=== PATIENT | female | born 1950 | race Caucasian/White ===

== ENCOUNTER 2019-11-29 09:49 | Inpatient (IN) ==
[2019-11-29] MEDS ORDERED: Aspirin 81 MG TAB.CHEW PO ONE (10:00)
[2019-11-29] MEDS: Nitroglycerin 0.4 MG TAB.SUBL SL PRN (10:12)
[2019-11-29 10:31] LABS: Basophils # 0.1 K/mcL (0.0-0.2); Basophils % 0.5 %; Eosinophils # 0.1 K/mcL (0.0-0.6); Eosinophils % 0.8 %; Hematocrit 41.4 % (35.3-44.9); Hemoglobin 13.6 g/dL (11.5-15.4); Immature Granulocytes % 0.3 % (0-4); Lymphocytes # 1.5 K/mcL (0.6-4.6); Lymphocytes % 13.5 %; Mean Corpuscular HGB Conc 32.9 g/dL (31.6-35.5); Mean Corpuscular Hemoglobin 31.8 pg (28.0-33.3); Mean Corpuscular Volume 96.7 fL (83.0-100.0); Mean Platelet Volume 11.5 fL (9.4-12.4); Monocytes # 0.7 K/mcL (0.0-1.3); Monocytes % 6.5 %; Neutrophils # 8.7 K/mcL (1.6-8.9); Platelet Count 150 K/mcL (140-400); Red Blood Count 4.28 M/mcL (3.82-4.97); Red Cell Distribution Width 12.9 % (11.5-14.5); Segmented Neutrophils % 78.4 %; White Blood Count 11.1 K/mcL (4.3-11.1)
[2019-11-29 10:41] LABS: INR 1.1; Prothrombin Time 12.1 Seconds (9.4-12.1)
[2019-11-29 10:44] LABS: Activated Partial Thrombo Time 36.6 Seconds (26.0-36.0)
[2019-11-29 10:55] LABS: BUN/Creatinine Ratio 32 (6-26); Blood Urea Nitrogen 24 mg/dL (8-23); Calcium 10.1 mg/dL (8.6-10.3); Carbon Dioxide 25 mEq/L (23-29); Chloride 104 mEq/L (98-107); Glucose 122 mg/dL (70-105); Osmolality,Calculated 289 (280-300); Potassium 4.3 mEq/L (3.5-5.1); Sodium 137 mEq/L (136-145); eGFR For African Americans > 60 (> 60); eGFR For Non-African Americans > 60 (> 60)
[2019-11-29 11:17] LABS: Troponin I 1.21 ng/mL (< 0.04)
[2019-11-29] MEDS ORDERED: *HR* Heparin 5,000 UNIT/ML VIAL IVP PRN ×2 (11:17)
[2019-11-29] MEDS ORDERED: *HR* Heparin 5,000 UNIT/ML VIAL IVP ONE (11:17)
[2019-11-29] MEDS ORDERED: *HR* Promethazine 25 MG/ML VIAL IVP PRN (11:21)
[2019-11-29] MEDS ORDERED: Acetaminophen 325 MG TABLET PO PRN (11:21)
[2019-11-29] MEDS ORDERED: Naloxone 0.4 MG/ML INJ IVP PRN (11:21)
[2019-11-29] MEDS ORDERED: Fluticasone Propionate Nasal 50 MCG/SPRAY BOTTLE NS PRN (11:27)
[2019-11-29 11:29] LABS: Heparin anti-factor XA UFH < 0.04 IU/mL (0.30-0.70)
[2019-11-29] MEDS ORDERED: Aspirin 81 MG TAB.CHEW PO SCH (11:30)
[2019-11-29] MEDS: Heparin 25,000 UNIT/250 ML D5W 25,000 UNIT/250 ML IV.SOLN IVC SCH (11:34)
[2019-11-29] MEDS: Furosemide 40 MG/4 ML VIAL IVP SCH (13:11)
[2019-11-29] MEDS: Metoprolol XL (24 HR) Succ 25 MG TAB.ER.24H PO SCH (13:11)
[2019-11-30 01:02] LABS: Basophils # 0.1 K/mcL (0.0-0.2); Basophils % 0.6 %; Eosinophils # 0.1 K/mcL (0.0-0.6); Eosinophils % 1.2 %; Hematocrit 38.7 % (35.3-44.9); Hemoglobin 12.8 g/dL (11.5-15.4); Immature Granulocytes % 0.2 % (0-4); Lymphocytes # 1.8 K/mcL (0.6-4.6); Lymphocytes % 22.1 %; Mean Corpuscular HGB Conc 33.1 g/dL (31.6-35.5); Mean Corpuscular Hemoglobin 31.1 pg (28.0-33.3); Mean Corpuscular Volume 94.2 fL (83.0-100.0); Mean Platelet Volume 11.8 fL (9.4-12.4); Monocytes % 12.1 %; Neutrophils # 5.3 K/mcL (1.6-8.9); Platelet Count 150 K/mcL (140-400); Red Blood Count 4.11 M/mcL (3.82-4.97); Segmented Neutrophils % 63.8 %; White Blood Count 8.3 K/mcL (4.3-11.1)
[2019-11-30 01:20] LABS: Alanine Aminotransferase 23 Units/L (7-52); Albumin/Globulin Ratio 1.7 (1.1-2.2); Alkaline Phosphatase 62 Units/L (34-104); Aspartate Amino Transferase 54 Units/L (13-39); BUN/Creatinine Ratio 30 (6-26); Bilirubin,Total 0.5 mg/dL (0.3-1.0); Blood Urea Nitrogen 23 mg/dL (8-23); Calcium 10.2 mg/dL (8.6-10.3); Carbon Dioxide 25 mEq/L (23-29); Chloride 102 mEq/L (98-107); Chol/HDL Ratio 3.8 (0-4.9); Cholesterol 180 mg/dL (< 200); Globulin 2.3 g/dL (2.4-3.5); Glucose 112 mg/dL (70-105); HDL Cholesterol 47 mg/dL (40-59); LDL Cholesterol,Calculated 105 mg/dL (0-99); Magnesium 1.8 mg/dL (1.6-2.6); Osmolality,Calculated 284 (280-300); Phosphorous 2.8 mg/dL (2.7-4.5); Potassium 3.7 mEq/L (3.5-5.1); Sodium 135 mEq/L (136-145); Total Protein 6.3 g/dL (6.4-8.9); Triglycerides 141 mg/dL (< 150); eGFR For African Americans > 60 (> 60); eGFR For Non-African Americans > 60 (> 60)
[2019-11-30] MEDS: Nitroglycerin 0.4 MG TAB.SUBL SL PRN (06:26)
[2019-11-30] MEDS ORDERED: 0.9 % Sodium Chloride 250 ML IVC ONE (06:45)
[2019-11-30] MEDS ORDERED: 0.9 % Sodium Chloride 250 ML ONE (06:46)
[2019-11-30] MEDS ORDERED: lisinopriL 10 MG TABLET PO SCH (09:00)
[2019-11-30] MEDS ORDERED: Spironolactone 25 MG TABLET PO SCH (09:00)
[2019-11-30] MEDS: Furosemide 40 MG/4 ML VIAL IVP SCH (09:02)
[2019-11-30] MEDS: Metoprolol XL (24 HR) Succ 25 MG TAB.ER.24H PO SCH (09:02)
[2019-11-30] MEDS: Loratadine 10 MG TABLET PO SCH (09:02)
[2019-11-30] MEDS: Aspirin 81 MG TAB.CHEW PO SCH (09:02)
[2019-11-30] MEDS ORDERED: Nitroglycerin 1 INCH/GM PACKET TP ONE (09:12)
[2019-11-30] MEDS ORDERED: Heparin 1,000 UNITS/500 mL 500 ML ONE (10:22)
[2019-11-30] MEDS ORDERED: 0.9 % Sodium Chloride 1,000 ML ONE ×2 (10:22→10:31)
[2019-11-30] MEDS ORDERED: *HR* Heparin 10,000 UNIT/10 ML VIAL ONE (10:22)
[2019-11-30] MEDS ORDERED: Nitroglycerin 1,000 MCG/10 ML VIAL IV ONE (10:23)
[2019-11-30] MEDS ORDERED: ISOVUE-370 200 ML INFUS..BTL ONE (10:23)
[2019-11-30] MEDS ORDERED: *HR* Midazolam HCl 2 MG/2 ML VIAL ONE (10:31)
[2019-11-30] MEDS ORDERED: *HR* FentaNYL (PF) 100 MCG/2 ML VIAL ONE (11:21)
[2019-11-30] MEDS ORDERED: Isovue-370 500 ML BOTTLE IVP ONE (12:03)
[2019-11-30] MEDS ORDERED: 0.9 % Sodium Chloride 500 ML IVC ONE (15:17)
[2019-12-01] MEDS: Heparin 25,000 UNIT/250 ML D5W 25,000 UNIT/250 ML IV.SOLN IVC SCH (02:36)
[2019-12-01] MEDS: Furosemide 40 MG/4 ML VIAL IVP SCH (07:53)
[2019-12-01] MEDS: Loratadine 10 MG TABLET PO SCH (08:17)
[2019-12-01] MEDS: Metoprolol XL (24 HR) Succ 25 MG TAB.ER.24H PO SCH (08:17)
[2019-12-01] MEDS: Aspirin 81 MG TAB.CHEW PO SCH (08:17)
[2019-12-01 08:55] LABS: Hematocrit 37.3 % (35.3-44.9); Hemoglobin 12.4 g/dL (11.5-15.4); Mean Corpuscular HGB Conc 33.2 g/dL (31.6-35.5); Mean Corpuscular Hemoglobin 31.6 pg (28.0-33.3); Mean Corpuscular Volume 94.9 fL (83.0-100.0); Mean Platelet Volume 11.6 fL (9.4-12.4); Platelet Count 141 K/mcL (140-400); Red Blood Count 3.93 M/mcL (3.82-4.97); Red Cell Distribution Width 13.4 % (11.5-14.5); White Blood Count 9.6 K/mcL (4.3-11.1)
[2019-12-01] MEDS ORDERED: lisinopriL 5 MG TABLET PO SCH (09:00)
[2019-12-01 09:21] LABS: BUN/Creatinine Ratio 24 (6-26); Blood Urea Nitrogen 17 mg/dL (8-23); Calcium 9.8 mg/dL (8.6-10.3); Carbon Dioxide 26 mEq/L (23-29); Chloride 104 mEq/L (98-107); Glucose 113 mg/dL (70-105); Osmolality,Calculated 284 (280-300); Sodium 136 mEq/L (136-145); eGFR For African Americans > 60 (> 60); eGFR For Non-African Americans > 60 (> 60)
[2019-12-01] MEDS ORDERED: Nitroglycerin 1 INCH/GM PACKET TP PRN ×2 (13:49→13:59)
[2019-12-02 07:27] VITALS: BP 97/62
[2019-12-02] MEDS: Metoprolol XL (24 HR) Succ 25 MG TAB.ER.24H PO SCH (09:02)
[2019-12-02] MEDS: Aspirin 81 MG TAB.CHEW PO SCH (09:02)
[2019-12-02] MEDS: Furosemide 40 MG/4 ML VIAL IVP SCH (09:02)
[2019-12-02] MEDS: Loratadine 10 MG TABLET PO SCH (09:02)
== END 2019-12-02 09:29 | disposition short-term general hospital (02) | DRG 281 ==
LOC: EMEROOARM 09:49 → 2ANU 09:49 → SUATTDRO 17:57
PROVIDERS: ADMIT Internal Medicine; ATTEND Family Medicine

== ENCOUNTER 2020-06-05 21:21 | Observation (INO) ==
[2020-06-05 22:47] LABS: Basophils % 0.5 %; Eosinophils # 0.1 K/mcL (0.0-0.6); Hemoglobin 13.7 g/dL (11.5-15.4); INR 1.1; Immature Granulocytes % 0.2 % (0-4); Lymphocytes # 1.4 K/mcL (0.6-4.6); Lymphocytes % 24.6 %; Mean Corpuscular HGB Conc 33.4 g/dL (31.6-35.5); Mean Corpuscular Volume 95.8 fL (83.0-100.0); Mean Platelet Volume 11.4 fL (9.4-12.4); Monocytes # 0.7 K/mcL (0.0-1.3); Monocytes % 12.1 %; Neutrophils # 3.6 K/mcL (1.6-8.9); Platelet Count 164 K/mcL (140-400); Red Blood Count 4.28 M/mcL (3.82-4.97); Red Cell Distribution Width 13.1 % (11.5-14.5); Segmented Neutrophils % 61.6 %; White Blood Count 5.9 K/mcL (4.3-11.1)
[2020-06-05 22:50] LABS: Activated Partial Thrombo Time 40.5 Seconds (26.0-36.0)
[2020-06-05] MEDS ORDERED: Nitroglycerin 0.4 MG TAB.SUBL SL PRN (22:52)
[2020-06-05 23:01] LABS: BUN/Creatinine Ratio 24 (6-26); Blood Urea Nitrogen 24 mg/dL (8-23); Calcium 10.6 mg/dL (8.6-10.3); Carbon Dioxide 26 mEq/L (23-29); Chloride 99 mEq/L (98-107); Glucose 98 mg/dL (70-105); Osmolality,Calculated 280 (280-300); Potassium 4.5 mEq/L (3.5-5.1); Sodium 133 mEq/L (136-145); eGFR For African Americans > 60 (> 60); eGFR For Non-African Americans 55 (> 60)
[2020-06-05 23:02] LABS: Troponin I < 0.03 ng/mL (< 0.04)
[2020-06-06] MEDS ORDERED: Perflutren Lipid Microsphere 1.3 ML in 0.9 % Sodium Chloride 8.7 ML IVP PRN (00:38)
[2020-06-06] MEDS ORDERED: Ondansetron 4 MG/2 ML VIAL IVP PRN (01:43)
[2020-06-06] MEDS ORDERED: Acetaminophen 325 MG TABLET PO PRN (01:43)
[2020-06-06] MEDS ORDERED: Naloxone 0.4 MG/ML INJ IVP PRN (01:43)
[2020-06-06] MEDS ORDERED: Famotidine 20 MG/2 ML VIAL IVP ONE (01:47)
[2020-06-06 02:51] LABS: Hematocrit 40.3 % (35.3-44.9); Hemoglobin 13.3 g/dL (11.5-15.4); Mean Corpuscular Hemoglobin 31.6 pg (28.0-33.3); Mean Corpuscular Volume 95.7 fL (83.0-100.0); Mean Platelet Volume 11.2 fL (9.4-12.4); Platelet Count 147 K/mcL (140-400); Red Blood Count 4.21 M/mcL (3.82-4.97); Red Cell Distribution Width 13.1 % (11.5-14.5); White Blood Count 5.3 K/mcL (4.3-11.1)
[2020-06-06 03:10] LABS: BUN/Creatinine Ratio 25 (6-26); Blood Urea Nitrogen 21 mg/dL (8-23); Calcium 10.2 mg/dL (8.6-10.3); Carbon Dioxide 24 mEq/L (23-29); Chloride 102 mEq/L (98-107); Chol/HDL Ratio 3.2 (0-4.9); Cholesterol 189 mg/dL (< 200); Glucose 95 mg/dL (70-105); HDL Cholesterol 60 mg/dL (40-59); LDL Cholesterol,Calculated 114 mg/dL (< 100); Magnesium 1.9 mg/dL (1.6-2.6); Osmolality,Calculated 281 (280-300); Phosphorous 2.4 mg/dL (2.7-4.5); Potassium 4.1 mEq/L (3.5-5.1); Sodium 134 mEq/L (136-145); Triglycerides 74 mg/dL (< 150); eGFR For African Americans > 60 (> 60); eGFR For Non-African Americans > 60 (> 60)
[2020-06-06 03:24] LABS: Thyroid Stimulating Hormone 4.793 mcIU/mL (0.340-5.600)
[2020-06-06] MEDS: *HR* Heparin 5,000 UNIT/ML VIAL SQ SCH ×2 (05:23→14:13)
[2020-06-06] MEDS ORDERED: Regadenoson 0.4 MG/5 ML SYRINGE IVP ONE (06:17)
[2020-06-06] MEDS ORDERED: Aspirin Enteric Coated 81 MG Tablet PO SCH (09:00)
[2020-06-06 11:18] VITALS: BP 151/76
[2020-06-06] MEDS ORDERED: Isosorbide MONOnitrate (24 HR) 60 MG TAB.ER.24H PO SCH (14:00)
[2020-06-06] MEDS ORDERED: Ranolazine 500 MG TAB.ER.12H PO SCH (14:00)
== END 2020-06-06 16:46 | disposition home or self-care (01) ==
LOC: EMEROOARM 21:21 → 3BNU 21:21 → SUATTDRO 06-06 00:37 → 3BNU 06-06 01:00
PROVIDERS: ADMIT Student in an Organized Health Care Education/Training Program; ATTEND Internal Medicine

== ENCOUNTER 2021-11-16 03:03 | Inpatient (IN) ==
[2021-11-16] MEDS ORDERED: Aspirin 81 MG TAB.CHEW PO ONE (03:43)
[2021-11-16 04:02] LABS: Basophils % 0.5 %; Eosinophils # 0.1 K/mcL (0.0-0.6); Eosinophils % 1.1 %; Hematocrit 36.4 % (35.3-44.9); Hemoglobin 12.4 g/dL (11.5-15.4); Immature Granulocytes % 0.4 % (0-4); Lymphocytes # 1.5 K/mcL (0.6-4.6); Lymphocytes % 25.8 %; Mean Corpuscular HGB Conc 34.1 g/dL (31.6-35.5); Mean Corpuscular Hemoglobin 33.8 pg (28.0-33.3); Mean Corpuscular Volume 99.2 fL (83.0-100.0); Mean Platelet Volume 11.5 fL (9.4-12.4); Monocytes # 0.6 K/mcL (0.0-1.3); Neutrophils # 3.6 K/mcL (1.6-8.9); Platelet Count 148 K/mcL (140-400); Red Blood Count 3.67 M/mcL (3.82-4.97); Red Cell Distribution Width 12.3 % (11.5-14.5); Segmented Neutrophils % 62.2 %; White Blood Count 5.7 K/mcL (4.3-11.1)
[2021-11-16] MEDS ORDERED: Vancomycin 1,500 MG/265 ML IV.SOLN IVPB ONE (04:17)
[2021-11-16 04:43] LABS: BUN/Creatinine Ratio 37 (6-26); Blood Urea Nitrogen 38 mg/dL (8-23); Carbon Dioxide 24 mEq/L (23-29); Chloride 102 mEq/L (98-107); Glucose 91 mg/dL (70-105); Osmolality,Calculated 285 (280-300); Potassium 4.2 mEq/L (3.5-5.1); Sodium 133 mEq/L (136-145); Troponin I 0.31 ng/mL (< 0.04); eGFR For African Americans > 60 (> 60); eGFR For Non-African Americans 54 (> 60)
[2021-11-16] MEDS ORDERED: *HR* Heparin 5,000 UNIT/ML VIAL IVP ONE (04:43)
[2021-11-16] MEDS ORDERED: *HR* Heparin 5,000 UNIT/ML VIAL IVP PRN ×2 (04:43)
[2021-11-16] MEDS: Heparin 25,000UNIT/250ML 1/2NS 25,000 UNIT/250 ML IV.SOLN IVC SCH (04:58)
[2021-11-16] MEDS ORDERED: Nitroglycerin 0.4 MG TAB.SUBL SL ONE (05:02)
[2021-11-16 05:28] LABS: Heparin anti-factor XA UFH < 0.04 IU/mL (0.30-0.70)
[2021-11-16 05:29] LABS: INR 1.1; Prothrombin Time 11.9 Seconds (9.4-12.1)
[2021-11-16] MEDS ORDERED: Naloxone 0.4 MG/ML INJ IVP PRN (06:06)
[2021-11-16] MEDS ORDERED: Ondansetron 4 MG/2 ML VIAL IVP PRN (06:06)
[2021-11-16] MEDS ORDERED: Nitroglycerin 0.4 MG TAB.SUBL SL PRN (06:40)
[2021-11-16] MEDS ORDERED: Perflutren Lipid Microsphere 1.3 ML in 0.9 % Sodium Chloride 8.7 ML IVP PRN (07:27)
[2021-11-16] MEDS ORDERED: D5% in Water 1,000 ML IVC PRN (07:37)
[2021-11-16] MEDS ORDERED: *HR* Dextrose 50 % in Water (Syg) 50 ML SYRINGE IVP PRN (07:37)
[2021-11-16] MEDS ORDERED: Dextrose 4 GM Chewable Tablets PO PRN ×2 (07:37)
[2021-11-16 07:48] LABS: Hematocrit 37.7 % (35.3-44.9); Hemoglobin 12.7 g/dL (11.5-15.4); Mean Corpuscular HGB Conc 33.7 g/dL (31.6-35.5); Mean Corpuscular Hemoglobin 33.1 pg (28.0-33.3); Mean Corpuscular Volume 98.2 fL (83.0-100.0); Mean Platelet Volume 12.2 fL (9.4-12.4); Platelet Count 143 K/mcL (140-400); Red Blood Count 3.84 M/mcL (3.82-4.97); Red Cell Distribution Width 12.2 % (11.5-14.5); White Blood Count 6.8 K/mcL (4.3-11.1)
[2021-11-16] MEDS: Aspirin 81 MG TAB.CHEW PO SCH (07:57)
[2021-11-16] MEDS: carvediloL 6.25 MG TABLET PO SCH ×2 (07:57→18:09)
[2021-11-16 11:43] LABS: Chol/HDL Ratio 3.6 (0-4.9)
[2021-11-16 11:52] LABS: Estimated Average Glucose 105 mg/dl; Hemoglobin A1C 5.3 %
[2021-11-16 11:57] LABS: Thyroid Stimulating Hormone 3.018 mcIU/mL (0.340-5.600)
[2021-11-16] MEDS ORDERED: 0.9 % Sodium Chloride 2,000 ML ONE (12:24)
[2021-11-16] MEDS ORDERED: Heparin 1,000 UNITS/500 mL 500 ML ONE (12:24)
[2021-11-16] MEDS ORDERED: Nitroglycerin 1,000 MCG/5 ML VIAL IV ONE (12:24)
[2021-11-16] MEDS ORDERED: ISOVUE-370 200 ML INFUS..BTL ONE (12:24)
[2021-11-16] MEDS ORDERED: *HR* Heparin 10,000 UNIT/10 ML VIAL ONE ×2 (12:24→14:13)
[2021-11-16] MEDS ORDERED: *HR* FentaNYL (PF) 100 MCG/2 ML VIAL ONE (12:25)
[2021-11-16] MEDS ORDERED: *HR* Midazolam HCl 2 MG/2 ML VIAL ONE (12:26)
[2021-11-16] MEDS: Isosorbide MONOnitrate (24 HR) 60 MG TAB.ER.24H PO SCH (15:58)
[2021-11-16] MEDS: Ranolazine 500 MG TAB.ER.12H PO SCH (21:03)
[2021-11-17 04:04] LABS: Hematocrit 32.9 % (35.3-44.9); Mean Corpuscular HGB Conc 33.7 g/dL (31.6-35.5); Mean Corpuscular Hemoglobin 33.4 pg (28.0-33.3); Mean Corpuscular Volume 99.1 fL (83.0-100.0); Platelet Count 129 K/mcL (140-400); Red Blood Count 3.32 M/mcL (3.82-4.97); Red Cell Distribution Width 12.4 % (11.5-14.5); White Blood Count 6.2 K/mcL (4.3-11.1)
[2021-11-17 04:06] LABS: Hemoglobin 11.1 g/dL (11.5-15.4)
[2021-11-17 04:28] LABS: BUN/Creatinine Ratio 34 (6-26); Blood Urea Nitrogen 26 mg/dL (8-23); Calcium 9.5 mg/dL (8.6-10.3); Carbon Dioxide 21 mEq/L (23-29); Chloride 106 mEq/L (98-107); Glucose 88 mg/dL (70-105); Magnesium 1.9 mg/dL (1.6-2.6); Osmolality,Calculated 282 (280-300); Potassium 4.2 mEq/L (3.5-5.1); Sodium 134 mEq/L (136-145); eGFR For African Americans > 60 (> 60); eGFR For Non-African Americans > 60 (> 60)
[2021-11-17 08:25] LABS: Hematocrit 37.2 % (35.3-44.9); Hemoglobin 12.6 g/dL (11.5-15.4)
[2021-11-17 08:44] LABS: % Iron Saturation 46 % (15-50); Iron 161 mcg/dL (50-170); Transferrin 248 mg/dL (203-362)
[2021-11-17 09:02] LABS: Ferritin 69 ng/mL (10-120)
[2021-11-17 09:15] LABS: Folate > 22.3 ng/mL (3.0-16.0); Vitamin B12 920 pg/mL (250-1100)
[2021-11-17] MEDS: Ranolazine 500 MG TAB.ER.12H PO SCH ×2 (09:55→22:45)
[2021-11-17] MEDS: Loratadine 10 MG TABLET PO SCH (09:55)
[2021-11-17] MEDS: Isosorbide MONOnitrate (24 HR) 60 MG TAB.ER.24H PO SCH (09:55)
[2021-11-17] MEDS: Aspirin 81 MG TAB.CHEW PO SCH (09:55)
[2021-11-17] MEDS: Lactobacillus 1 EACH CAP.SPRINK PO SCH (09:55)
[2021-11-17] MEDS: Spironolactone 25 MG TABLET PO SCH (09:55)
[2021-11-17] MEDS: Cholecalciferol (D-3) 1,000 UNIT (25MCG) TABLET PO SCH (09:55)
[2021-11-17] MEDS: carvediloL 6.25 MG TABLET PO SCH ×2 (09:58→17:28)
[2021-11-17] MEDS ORDERED: *HR* Heparin 10,000 UNIT/10 ML VIAL ONE (10:37)
[2021-11-17] MEDS ORDERED: ISOVUE-370 200 ML INFUS..BTL ONE ×2 (10:37→12:37)
[2021-11-17] MEDS ORDERED: Heparin 1,000 UNITS/500 mL 500 ML ONE ×2 (10:37→12:11)
[2021-11-17] MEDS ORDERED: 0.9 % Sodium Chloride 2,000 ML ONE (10:37)
[2021-11-17] MEDS ORDERED: Nitroglycerin 1,000 MCG/5 ML VIAL IV ONE (10:38)
[2021-11-17] MEDS ORDERED: *HR* FentaNYL (PF) 100 MCG/2 ML VIAL ONE (10:45)
[2021-11-17] MEDS ORDERED: *HR* Midazolam HCl 2 MG/2 ML VIAL ONE (10:45)
[2021-11-17] MEDS ORDERED: Papaverine 60 MG/2 ML VIAL IVP ONE (11:03)
[2021-11-17] MEDS ORDERED: *HR* Adenosine 6 MG/2 ML VIAL IVP ONE (11:08)
[2021-11-17] MEDS ORDERED: D5% in Water 0 ML IVC ONE (11:40)
[2021-11-17] MEDS: Heparin 25,000UNIT/250ML 1/2NS 25,000 UNIT/250 ML IV.SOLN IVC SCH (15:36)
[2021-11-18 02:23] LABS: Hematocrit 30.3 % (35.3-44.9); Hemoglobin 10.6 g/dL (11.5-15.4); Immature Platelets 8.6 % (1.1-6.1); Mean Corpuscular Hemoglobin 34.2 pg (28.0-33.3); Mean Corpuscular Volume 97.7 fL (83.0-100.0); Mean Platelet Volume 11.7 fL (9.4-12.4); Red Blood Count 3.1 M/mcL (3.82-4.97); Red Cell Distribution Width 12.5 % (11.5-14.5); White Blood Count 5.3 K/mcL (4.3-11.1)
[2021-11-18 02:39] LABS: BUN/Creatinine Ratio 23 (6-26); Blood Urea Nitrogen 20 mg/dL (8-23); Calcium 9.1 mg/dL (8.6-10.3); Carbon Dioxide 22 mEq/L (23-29); Chloride 104 mEq/L (98-107); Glucose 91 mg/dL (70-105); Magnesium 1.8 mg/dL (1.6-2.6); Osmolality,Calculated 276 (280-300); Phosphorous 2.7 mg/dL (2.7-4.5); Potassium 4.1 mEq/L (3.5-5.1); Sodium 132 mEq/L (136-145); eGFR For African Americans > 60 (> 60); eGFR For Non-African Americans > 60 (> 60)
[2021-11-18] MEDS: Heparin 25,000UNIT/250ML 1/2NS 25,000 UNIT/250 ML IV.SOLN IVC SCH (04:02)
[2021-11-18 07:43] VITALS: O2SAT 99
[2021-11-18] MEDS: Ranolazine 500 MG TAB.ER.12H PO SCH (09:28)
[2021-11-18] MEDS: Aspirin 81 MG TAB.CHEW PO SCH (09:29)
[2021-11-18] MEDS: Loratadine 10 MG TABLET PO SCH (09:29)
[2021-11-18] MEDS: carvediloL 6.25 MG TABLET PO SCH (09:29)
[2021-11-18] MEDS: Cholecalciferol (D-3) 1,000 UNIT (25MCG) TABLET PO SCH (09:29)
[2021-11-18] MEDS: Lactobacillus 1 EACH CAP.SPRINK PO SCH (09:29)
[2021-11-18] MEDS: Isosorbide MONOnitrate (24 HR) 60 MG TAB.ER.24H PO SCH (09:29)
[2021-11-18] MEDS: Spironolactone 25 MG TABLET PO SCH (09:30)
[2021-11-18 11:10] LABS: Hematocrit 29.8 % (35.3-44.9); Hemoglobin 10.1 g/dL (11.5-15.4)
[2021-11-18 11:35] VITALS: BP 115/71; PULSE 64; TEMP 98
== END 2021-11-18 14:56 | disposition home health service (06) | DRG 247 ==
LOC: EMEROOARM 03:03 → 3BNU 03:03 → SUATTDRO 06:14 → 2ANU 06:15
PROVIDERS: ADMIT Internal Medicine; ATTEND Internal Medicine

== ENCOUNTER 2021-11-20 18:13 | Observation (INO) ==
[2021-11-20 19:02] LABS: Basophils % 0.6 %; Eosinophils # 0.1 K/mcL (0.0-0.6); Eosinophils % 0.7 %; Hematocrit 34.3 % (35.3-44.9); Immature Granulocytes % 0.3 % (0-4); Lymphocytes # 0.8 K/mcL (0.6-4.6); Lymphocytes % 12.6 %; Mean Corpuscular HGB Conc 34.4 g/dL (31.6-35.5); Mean Corpuscular Volume 98.8 fL (83.0-100.0); Mean Platelet Volume 11.9 fL (9.4-12.4); Monocytes # 0.7 K/mcL (0.0-1.3); Monocytes % 10.3 %; Neutrophils # 5.1 K/mcL (1.6-8.9); Platelet Count 152 K/mcL (140-400); Red Blood Count 3.47 M/mcL (3.82-4.97); Red Cell Distribution Width 12.4 % (11.5-14.5); Segmented Neutrophils % 75.5 %; White Blood Count 6.7 K/mcL (4.3-11.1)
[2021-11-20 19:06] LABS: Hemoglobin 11.8 g/dL (11.5-15.4)
[2021-11-20 19:10] LABS: INR 1.2; Prothrombin Time 13.1 Seconds (9.4-12.1)
[2021-11-20 19:12] LABS: Activated Partial Thrombo Time 41.3 Seconds (26.0-36.0)
[2021-11-20 19:41] LABS: BUN/Creatinine Ratio 25 (6-26); Blood Urea Nitrogen 25 mg/dL (8-23); Calcium 10.4 mg/dL (8.6-10.3); Carbon Dioxide 23 mEq/L (23-29); Chloride 101 mEq/L (98-107); Glucose 99 mg/dL (70-105); Osmolality,Calculated 282 (280-300); Potassium 4.3 mEq/L (3.5-5.1); Sodium 134 mEq/L (136-145); Troponin I 0.27 ng/mL (< 0.04); eGFR For African Americans > 60 (> 60); eGFR For Non-African Americans 54 (> 60)
[2021-11-20] MEDS ORDERED: Ondansetron 4 MG/2 ML VIAL IVP ONE (20:14)
[2021-11-20] MEDS ORDERED: Aspirin 325 MG TABLET PO ONE (20:47)
[2021-11-20] MEDS ORDERED: Ondansetron 4 MG/2 ML VIAL IVP PRN (21:11)
[2021-11-20] MEDS ORDERED: Naloxone 0.4 MG/ML INJ IVP PRN (21:11)
[2021-11-21] MEDS ORDERED: Nitroglycerin 0.4 MG TAB.SUBL SL PRN ×2 (00:21→07:38)
[2021-11-21 03:39] LABS: Hematocrit 29.6 % (35.3-44.9); Hemoglobin 10.5 g/dL (11.5-15.4); Mean Corpuscular HGB Conc 35.5 g/dL (31.6-35.5); Mean Corpuscular Hemoglobin 34.3 pg (28.0-33.3); Mean Corpuscular Volume 96.7 fL (83.0-100.0); Mean Platelet Volume 11.7 fL (9.4-12.4); Platelet Count 141 K/mcL (140-400); Red Blood Count 3.06 M/mcL (3.82-4.97); Red Cell Distribution Width 12.2 % (11.5-14.5); White Blood Count 6.1 K/mcL (4.3-11.1)
[2021-11-21 03:48] LABS: BUN/Creatinine Ratio 31 (6-26); Blood Urea Nitrogen 25 mg/dL (8-23); Calcium 9.9 mg/dL (8.6-10.3); Carbon Dioxide 23 mEq/L (23-29); Chloride 102 mEq/L (98-107); Glucose 109 mg/dL (70-105); Osmolality,Calculated 279 (280-300); Potassium 3.9 mEq/L (3.5-5.1); Sodium 132 mEq/L (136-145); eGFR For African Americans > 60 (> 60); eGFR For Non-African Americans > 60 (> 60)
[2021-11-21] MEDS ORDERED: Acetaminophen 325 MG TABLET PO PRN (06:00)
[2021-11-21] MEDS ORDERED: Fluticasone Propionate Nasal 50 MCG/SPRAY BOTTLE NS PRN (07:38)
[2021-11-21] MEDS: Spironolactone 25 MG TABLET PO SCH (08:26)
[2021-11-21] MEDS: Lactobacillus 1 EACH CAP.SPRINK PO SCH (08:26)
[2021-11-21] MEDS: lisinopriL 10 MG TABLET PO SCH (08:26)
[2021-11-21] MEDS: Multivit/Ca/Min/Fe/FA 1 TAB TABLET PO SCH (08:26)
[2021-11-21] MEDS: Aspirin 81 MG TAB.CHEW PO SCH (08:26)
[2021-11-21] MEDS: Cholecalciferol (D-3) 1,000 UNIT (25MCG) TABLET PO SCH (08:26)
[2021-11-21] MEDS: Colestipol Hcl [Colestid] 1 GM Tablet PO SCH (08:27)
[2021-11-21] MEDS: Omega-3/Dha/Epa/Fish Oil [Fish Oil 1,000 Mg Softgel] PO SCH (08:27)
[2021-11-21] MEDS: Loratadine 10 MG TABLET PO SCH (08:27)
[2021-11-21] MEDS: Ranolazine 500 MG TAB.ER.12H PO SCH ×2 (08:29→20:51)
[2021-11-21 08:34] LABS: Magnesium 1.7 mg/dL (1.6-2.6); Phosphorous 3.2 mg/dL (2.7-4.5); Thyroid Stimulating Hormone 2.786 mcIU/mL (0.340-5.600); Troponin I 0.25 ng/mL (< 0.04)
[2021-11-21 09:10] LABS: Folate > 22.3 ng/mL (3.0-16.0); Vitamin B12 866 pg/mL (250-1100)
[2021-11-21] MEDS: Propranolol LA (24 HR) 80 MG CAP.SA.24H PO SCH (11:55)
[2021-11-22 06:38] LABS: Basophils # 0.1 K/mcL (0.0-0.2); Basophils % 0.8 %; Eosinophils # 0.1 K/mcL (0.0-0.6); Eosinophils % 1.5 %; Hematocrit 34.4 % (35.3-44.9); Hemoglobin 11.6 g/dL (11.5-15.4); Immature Granulocytes % 0.5 % (0-4); Lymphocytes # 1.1 K/mcL (0.6-4.6); Lymphocytes % 16.1 %; Mean Corpuscular HGB Conc 33.7 g/dL (31.6-35.5); Mean Corpuscular Hemoglobin 33.7 pg (28.0-33.3); Mean Platelet Volume 11.9 fL (9.4-12.4); Monocytes # 0.8 K/mcL (0.0-1.3); Monocytes % 12.3 %; Neutrophils # 4.6 K/mcL (1.6-8.9); Platelet Count 150 K/mcL (140-400); Red Blood Count 3.44 M/mcL (3.82-4.97); Red Cell Distribution Width 12.7 % (11.5-14.5); Segmented Neutrophils % 68.8 %; White Blood Count 6.7 K/mcL (4.3-11.1)
[2021-11-22 07:00] LABS: BUN/Creatinine Ratio 31 (6-26); Blood Urea Nitrogen 30 mg/dL (8-23); Calcium 10.1 mg/dL (8.6-10.3); Carbon Dioxide 24 mEq/L (23-29); Chloride 102 mEq/L (98-107); Glucose 72 mg/dL (70-105); Osmolality,Calculated 281 (280-300); Potassium 4.4 mEq/L (3.5-5.1); Sodium 133 mEq/L (136-145); eGFR For African Americans > 60 (> 60); eGFR For Non-African Americans 56 (> 60)
[2021-11-22] MEDS ORDERED: Isosorbide MONOnitrate (24 HR) 60 MG TAB.ER.24H PO SCH (09:00)
[2021-11-22] MEDS ORDERED: Furosemide 40 MG TABLET PO SCH (09:00)
[2021-11-22] MEDS: Spironolactone 25 MG TABLET PO SCH (09:52)
[2021-11-22] MEDS: Lactobacillus 1 EACH CAP.SPRINK PO SCH (09:52)
[2021-11-22] MEDS: Propranolol LA (24 HR) 80 MG CAP.SA.24H PO SCH (09:52)
[2021-11-22] MEDS: Loratadine 10 MG TABLET PO SCH (09:52)
[2021-11-22] MEDS: Cholecalciferol (D-3) 1,000 UNIT (25MCG) TABLET PO SCH (09:52)
[2021-11-22] MEDS: Ranolazine 500 MG TAB.ER.12H PO SCH (09:54)
[2021-11-22] MEDS: Aspirin 81 MG TAB.CHEW PO SCH (09:55)
[2021-11-22] MEDS: Multivit/Ca/Min/Fe/FA 1 TAB TABLET PO SCH (09:55)
[2021-11-22] MEDS: Omega-3/Dha/Epa/Fish Oil [Fish Oil 1,000 Mg Softgel] PO SCH (09:56)
[2021-11-22] MEDS: Colestipol Hcl [Colestid] 1 GM Tablet PO SCH (09:56)
[2021-11-22] MEDS: lisinopriL 10 MG TABLET PO SCH (10:02)
[2021-11-22 11:31] VITALS: BP 109/53; PULSE 65; TEMP 97.8; O2SAT 97
== END 2021-11-22 11:50 | disposition home or self-care (01) ==
LOC: EMEROOARM 18:13 → 3NENU 18:13 → SUATTDRO 21:05 → 3NENU 22:05
PROVIDERS: ADMIT Student in an Organized Health Care Education/Training Program; ATTEND Family Medicine